=== PATIENT | female | born 1945 | race Caucasian/White ===

== ENCOUNTER 2020-06-30 18:49 | Emergency (ER) | payer OTHER ==
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
[2020-06-30 19:58] VITALS: BMI 18.5
--- NOTE | 2020-06-30 20:40 | PDOC ---
*Physical Exam - Vital Signs Last Vital Signs Temp Pulse Resp BP Pulse Ox 98 F 84 20 118/53 L 98 06/30/20 19:49 06/30/20 19:49 06/30/20 19:49 06/30/20 19:49 06/30/20 19:49 Medical Decision Making - Medical Decision Making 06/30/20 20:40 Patient seen by the advanced practice provider under my supervision. Ancillary testing reviewed as necessary. I agree with plan as outlined by the advanced practice provider. Discharge - Discharge Information Problems reviewed: Yes Clinical Impression/Diagnosis: Head injury Qualifiers: Encounter type: initial encounter Qualified Code(s): S09.90XA - Unspecified injury of head, initial encounter Neck injury Qualifiers: Encounter type: initial encounter Qualified Code(s): S19.9XXA - Unspecified injury of neck, initial encounter Concussion Qualifiers: Encounter type: initial encounter Loss of consciousness presence/duration: without LOC Qualified Code(s): S06.0X0A - Concussion without loss of consciousness, initial encounter Disposition: TRANSFER ACUTE CARE/OTHER HOSP - Follow up/Referral Referrals: Slava Min MD [Primary Care Provider] - - Patient Discharge Instructions - Post Discharge Activity
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
[2020-06-30 23:47] VITALS: BP 132/74; PULSE 75; TEMP 97.3
== END 2020-07-01 00:45 | disposition short-term general hospital (02) ==
LOC: JER 18:49
DX: S09.90XA Unspecified injury of head, initial encounter (principal); S19.9XXA Unspecified injury of neck, initial encounter; S06.0X0A Concussion without loss of consciousness, initial encounter
CPT/HCPCS: 70450-TC; 70486-TC; 72125-TC; 73110-TC-RT-FY; 73130-TC-RT-FY; 99285-25